=== PATIENT | male | born 1955 | race Caucasian/White ===

== ENCOUNTER 2017-04-17 16:59 | Emergency (ER) | payer OTHER ==
[2017-04-17 17:23] LABS: BASOPHIL# 0.1 X 10^3uL (0.0-0.1); EOSINOPHILS 3.1 % (0.0-6.0); EOSINOPHILS# 0.2 X 10^3uL (0.0-0.4); HEMATOCRIT 43.4 % (42.0-54.0); HEMOGLOBIN 14.5 g/dL (14.0-18.0); LYMPHOCYTES 21.3 % (20.0-40.0); LYMPHOCYTES# 1.6 X 10^3uL (0.8-3.8); MEAN CELL VOLUME 84.8 fL (80.0-100.0); MEAN CORPUS. HGB CONCENTRATION 33.3 g/dL (32.0-36.0); MEAN CORPUSCULAR HEMOGLOBIN 28.2 pg (29.0-35.0); MEAN PLATELET VOLUME 9.4 fL (7.4-10.4); MONOCYTES 7.8 % (2.0-10.0); MONOCYTES# 0.6 X 10^3uL (0.2-1.0); NEUTROPHILS 66.8 % (54.0-75.0); NEUTROPHILS# 5.2 X 10^3uL (2.6-6.7); PLATELET COUNT 308 X 10^3uL (130-440); RED BLOOD COUNT 5.12 X 10^6uL (4.20-6.10); RED CELL DISTRIBUTION WIDTH 12.9 % (11.5-14.5); WHITE BLOOD COUNT 7.7 X 10^3uL (3.9-10.7)
[2017-04-17 17:40] LABS: BLOOD UREA NITROGEN 27 mg/dL (9-20); CALCIUM 10.5 mg/dL (8.4-10.2); CHLORIDE 106 mmol/L (98-107); EST GLOMERULAR FILTRATION RATE > 60 mL/min; GLUCOSE 56 mg/dL (70-100); MAGNESIUM 2.2 mg/dL (1.6-2.3); POTASSIUM 3.9 mmol/L (3.5-5.1); SODIUM 143 mmol/L (137-145)
[2017-04-17 18:00] LABS: TROPONIN I < 0.012 ng/mL (0.00-0.034)
--- NOTE | 2017-04-17 19:02 | ER PHYSICIAN DOCUMENTATION ---
Physician Documentation [facility] Name:Richard Suarez Age:61 yrs Sex:Male :1955 Arrival Date:04/17/2017 Time:16:59 BedTrauma-C Private MD:Deloris Stroud ED, Tom Disposition: 04/17 18:20 Critical Care: not applicable. Chart complete. tl1 Disposition: 04/17/17 18:33 Discharged to Home/Self Care. Impression: Chest Pain, Palpitations. - Condition is Good. - Discharge Instructions: CHEST PAIN, Uncertain Cause, PALPITATIONS. - Prescriptions for Nitrostat 0.4 mg Sublingual Tablet, Sublingual - place 1 tablet by SUBLINGUAL route one time As needed - at the first sign of an attack; no more than 3 tablets are recommended within a 15 minute period.; 25 tablet. - Medical Reconciliation form form. - Follow up: Biju Jones MD; When: Tomorrow; Reason: Recheck today's complaints, for a STRESS echo. - Problem is new. - Symptoms have improved. HPI: 17:10 This 61 yrs old Male presents to ER via Private Vehicle with complaints of tl1 Breathing Difficulty, Dizziness. 17:10 The patient has shortness of breath with light activity. Onset: The symptom(s)/episode tl1 began/occurred suddenly, yesterday. Duration: The symptoms are intermittent, with episodes lasting 5 minute(s) at a time. The patient's shortness of breath is aggravated by light activity, is alleviated by rest. Associated signs and symptoms: Pertinent positives: chest pain, non-productive cough, diaphoresis, dizziness, Pertinent negatives: fever, hemoptysis, nausea, vomiting. Severity of symptoms: At their worst the symptoms were moderate in the emergency department the symptoms have resolved. The patient has experienced similar episodes in the past, a few times. He had some similar episodes about a year ago and was advised to get a stress test on return home to [place], but he was unable to get it done over the winter. He saw Dr Aguilar a few days ago and has an Echo scheduled for tomorrow. Today he went for a slow walk and had the onset of dizziness, diaphoresis, chest pressure, dyspnea and a decrease of his pulse ox into the 86% range and pulse in the 140 range. said it seemed He was convinced to come in by his , a nurse.. Historical: - Allergies: No known drug Allergies; - Home Meds: 1. Novolog 100 unit/mL subcutaneous soln 2. valsartan 320 mg oral tab 1 tab once daily 3. simvastatin 20 mg oral tab 1 tab once daily 4. amlodipine 5 mg oral tab 1 tab once daily 5. Glucagon Emergency 1 mg injection kit 6. aspirin 325 mg oral TbEC 1 tab once daily 7. Glucosamine Complex-MSM oral cap 8. Iron CR Oral 9. Flonase 50 mcg/actuation nasal spsn 2 sprays once daily for Allergic Rhinitis - PMHx: Diabetes - IDDM; diabetic retinopathy; Right shoulder surgery; KIDNEY STONES; Nocturnal Hypoxemia; Shortness of Breath; Hypoxia; Chronic Cough; Chronic Fatigue; BRONCHITIS; PNEUMONIA; Tachycardia; Hypertension; - PSHx: Rotator Cuff repair; Vitrectomy of Left eye; - Tetanus: < 10 years. - Ebola Screening: : Patient negative for fever greater than or equal to 101.5 degrees Fahrenheit, and additional compatible Ebola Virus Disease symptoms. Patient negative for fever greater than or equal to 101.5 degrees Fahrenheit, and additional compatible Ebola Virus Disease symptoms. Patient denies exposure to infectious person. Patient denies travel to an Ebola-affected area in the 21 days before illness onset. . - Immunization history: Pneumococcal vaccine status is unknown, Pneumococcal vaccine is up to date, Flu Vaccine < 1 year. - Social history: Smoking status: Patient states was never smoker of tobacco. ROS: 17:29 Cardiovascular: Positive for chest pain, palpitations, Negative for edema. tl1 17:29 Respiratory: Positive for cough, dyspnea on exertion, shortness of breath, Negative for orthopnea, sputum production, wheezing. 17:29 All other systems are negative. Exam: 17:29 Constitutional: This is a well developed, well nourished patient who is awake, alert, tl1 and in no acute distress. Head/Face: Normocephalic, atraumatic. 17:29 Neck: Trachea midline, no thyromegaly or masses palpated, and no cervical tl1 lymphadenopathy. Supple, full range of motion without nuchal rigidity, or vertebral point tenderness. No Meningismus. 17:29 Cardiovascular: Rate: normal, Rhythm: regular, Pulses: no pulse deficits are appreciated, Heart sounds: normal, Edema: is not appreciated, JVD: is not appreciated. 17:29 Respiratory: Respirations: normal, Breath sounds: are normal, no rales, rhonchi, no stridor, no wheezing. 17:29 Abdomen/GI: Palpation: abdomen is soft and non-tender. 17:29 Musculoskeletal/extremity: Exam is negative for acute changes. 17:29 Skin: Exam negative for acute changes. 17:29 Neuro: grossly normal. Vital Signs: 17:10 BP 127 / 77; Pulse 93; Resp 17; Temp 98.9(TE); Pulse Ox 92% on R/A; Weight 97.52 kg; rh Height 6 ft. 3 in. (190.50 cm); Pain 2/10; 17:37 BP 121 / 61; Pulse 84; Resp 15; Pulse Ox 91% on R/A; Pain 3/10; rh 18:00 BP 118 / 65 (auto/); lc 18:01 Pulse 85 MON; Resp 19; Pulse Ox 91% ; lc 18:45 Pain 0/10; lc 17:10 Body Mass Index 26.87 (97.52 kg, 190.50 cm) rh MDM: 17:22 Patient medically screened. tl1 17:31 Differential diagnosis: Anemia Anxiety Reaction CHF exacerbation, Myocardial Infarction tl1 pneumonia, pulmonary edema, Pulmonary Embolism Unstable Angina. Antibiotic administration: Not indicated. The patient's pulmonary embolism risk score was calculated as follows: No Risks (0 Pts). Data reviewed: vital signs, nurses notes, lab test result(s), cardiac enzymes, CBC, electrolytes, hepatic panel, urinalysis, EKG, and as a result, I will discharge patient. Data interpreted: recycling worker: Pulse oximetry:. Test interpretation: by ED physician or midlevel provider: plain radiologic studies, ECG. Counseling: I had a detailed discussion with the patient and/or guardian regarding: the historical points, exam findings, and any diagnostic results supporting the discharge/admit diagnosis, lab results, radiology results, the need for outpatient follow up, to return to the emergency department if symptoms worsen or persist or if there are any questions or concerns that arise at home. ECG:. 17:38 EKG attached cb 18:20 ED course: He was pain free throughout his ED stay with stable RA pulse ox's in the tl1 89-90% range. I told him that I think he is at moderate risk for an ACS. I think he is safe to go home overnight but I stressed the need for a stress test tomorrow,and I made every attempt ( the cardiology clinic was closed ) to change his echo tomorrow to a stress echo, prior to him flying back to [place] on .. 04/17 17:42 Order name: CBC AUTO DIF, MDIF/RMOR IF IND; Complete Time: 18:31 EDMS 04/17 17:53 Interpretation: Normal: WHITE BLOOD COUNT 7.7; HEMOGLOBIN 14.5; HEMATOCRIT 43.4; tl1 PLATELET COUNT 308. 04/17 18:01 Order name: BASIC METABOLIC PANEL; Complete Time: 18:31 EDMS 04/17 18:10 Interpretation: Normal: SODIUM 143; POTASSIUM 3.9; CHLORIDE 106; CARBON DIOXIDE 24; tl1 GLUCOSE 56; BLOOD UREA NITROGEN 27; CREATININE 1.2; CALCIUM 10.5. 04/17 18:01 Order name: MAGNESIUM; Complete Time: 18:31 EDMS 04/17 18:10 Interpretation: Normal: MAGNESIUM 2.2. tl1 04/17 18:01 Order name: TROPONIN I; Complete Time: 18:31 EDMS 04/17 18:10 Interpretation: Normal: TROPONIN I < 0.012. tl1 04/17 18:19 Order name: BNP,NT-PRO; Complete Time: 08:05 EDAZ 04/19 08:01 Interpretation: Normal: BNP,NT-PRO 60. tl1 04/18 07:09 Order name: CXR 2V [id number]; Complete Time: 08:05 EDAZ 04/17 17:09 Order name: 12-lead EKG; Complete Time: 17:09 04/17 17:09 Order name: Iv Saline Lock; Complete Time: 17: cb 04/17 17:09 Order name: Place Patient On Monitor; Complete Time: 17: cb 04/17 17:09 Order name: Pulse Ox Continuous; Complete Time: 17:09 cb EC:02 Rate is 86 beats/min. Rhythm is regular. QRS [place] is Normal. OR interval is normal at tl1 151 msec. QRS interval is normal at 99 msec. QT interval is normal at 431 msec. T waves are Normal. No ST changes noted. Clinical impression: Normal ECG. Interpreted by me. Reviewed by me. Dispensed Medications: No medications were administered Signatures: Li Reich, RN RN Rachel Braga RN RN Alla Garcia RN RN Mckinley Valadez MD MD [facility] Sushila Velazquez
--- NOTE | 2017-04-17 19:02 | ER NURSING DOCUMENTATION ---
Nurse's Notes [facility] Name:Richard Suarez Age:61 yrs Sex:Male :1955 Arrival Date:04/17/2017 Time:16:59 BedTrauma-C Private MD:Deloris Stroud Diagnosis:Chest Pain;Palpitations Presentation: 04/17 17:07 Acuity: ROGER 2 cb 17:08 Presenting complaint: Patient states: Pt has had ongoing cough, shortness of breath and rh some chest tightness. Pt yesterday was working around the house and had the chest tightness, diaphoresis and lightheadedness, same episode happened today. Pt is having a cardiac workup done tomorrow per dio. Transition of care: Home. 17:08 Method Of Arrival: Private Vehicle rh Triage Assessment: 17:09 General: Appears in no apparent distress, Behavior is cooperative. Pain: Denies pain. rh EENT: Oral mucosa is dry. Neuro: Level of Consciousness is awake, alert, obeys commands, Oriented to person, place, time, event. Cardiovascular: Capillary refill < 3 seconds Reports Diaphoresis shortness of breath Rhythm is sinus rhythm Chest pain quality is Tightness. Respiratory: Airway is patent Reports shortness of breath cough that is Onset: The symptoms/episode began/occurred gradually, the patient has mild shortness of breath. GI: Abdomen is non- distended Denies nausea. : No deficits noted. Derm: Skin is intact, is healthy with good turgor, Skin is pink, warm & dry. Musculoskeletal: Circulation, motion, and sensation intact Range of motion intact in all extremities. Historical: - Allergies: No known drug Allergies; - Home Meds: 1. Novolog 100 unit/mL subcutaneous soln 2. valsartan 320 mg oral tab 1 tab once daily 3. simvastatin 20 mg oral tab 1 tab once daily 4. amlodipine 5 mg oral tab 1 tab once daily 5. Glucagon Emergency 1 mg injection kit 6. aspirin 325 mg oral TbEC 1 tab once daily 7. Glucosamine Complex-MSM oral cap 8. Iron CR Oral 9. Flonase 50 mcg/actuation nasal spsn 2 sprays once daily for Allergic Rhinitis - PMHx: Diabetes - IDDM; diabetic retinopathy; Right shoulder surgery; KIDNEY STONES; Nocturnal Hypoxemia; Shortness of Breath; Hypoxia; Chronic Cough; Chronic Fatigue; BRONCHITIS; PNEUMONIA; Tachycardia; Hypertension; - PSHx: Rotator Cuff repair; Vitrectomy of Left eye; - Tetanus: < 10 years. - Ebola Screening: : Patient negative for fever greater than or equal to 101.5 degrees Fahrenheit, and additional compatible Ebola Virus Disease symptoms. Patient negative for fever greater than or equal to 101.5 degrees Fahrenheit, and additional compatible Ebola Virus Disease symptoms. Patient denies exposure to infectious person. Patient denies travel to an Ebola-affected area in the 21 days before illness onset. . - Immunization history: Pneumococcal vaccine status is unknown, Pneumococcal vaccine is up to date, Flu Vaccine < 1 year. - Social history: Smoking status: Patient states was never smoker of tobacco. Screenin:11 Infectious Disease Risk None. Abuse screen: Denies threats or abuse. Denies injuries rh from another. Nutritional screening: No deficits noted. Assessment: 17:11 See Triage Assessment done by same RN. 18:00 Respiratory: Respiratory effort is even, unlabored. lc 18:20 Reassessment: Patient states symptoms have improved. Patient appears in no apparent lc distress at this time. VSS, MONITOR IN NSR, NO C/O, AWAITING LABS. Vital Signs: 17:10 BP 127 / 77; Pulse 93; Resp 17; Temp 98.9(TE); Pulse Ox 92% on R/A; Weight 97.52 kg; rh Height 6 ft. 3 in. (190.50 cm); Pain 2/10; 17:37 BP 121 / 61; Pulse 84; Resp 15; Pulse Ox 91% on R/A; Pain 3/10; rh 18:00 BP 118 / 65 (auto/); lc 18:01 Pulse 85 MON; Resp 19; Pulse Ox 91% ; lc 18:45 Pain 0/10; lc 17:10 Body Mass Index 26.87 (97.52 kg, 190.50 cm) ED Course: 17:00 Patient arrived in ED. jl 17:00 Deloris Stroud MD is Private Physician. jl 17:00 nurse monitoring on. Pulse ox on. NIBP on. rh 17:02 Inserted peripheral IV: 20 gauge in right antecubital area and blood collected. 17:07 Triage completed. cb 17:08 Sushila Velazquez is Primary Nurse. rh 17:11 Notified ED Physician of patient's arrival and chief complaint. Dr. Sanchez notified. rh 17:11 Valuables Remains with patient Patient has correct armband on for positive rh identification. Placed in gown. Bed in low position. Call light in reach. Side rails up X 1. 17:22 Mckinley Sanchez MD is Attending Physician. tl1 17:38 EKG attached cb 18:31 Biju Jones MD is Referral Physician. tl1 Administered Medications: No medications were administered Outcome: 18:33 Discharge ordered by . tl1 18:45 Discharged to home ambulatory, with significant other. 18:45 Condition: stable 18:45 Discharge Assessment: Patient awake, alert and oriented x 3. No cognitive and/or functional deficits noted. Patient verbalized understanding of disposition instructions. 18:45 Discharge instructions given to patient, significant other, Instructed on discharge instructions, follow up and referral plans. medication usage, get stress echo tomorrow. forms faxed to cardiac clinic Demonstrated understanding of instructions, medications, Prescriptions given X 1. 19:01 Patient left the ED. 04/18 08:48 Discharge F/U Call: Spoke with: patient. Signatures: Li Reich, RN RN Rachel Braga RN RN lc Pavlish, Lena, MADDY CASTAÑEDA Mckinley Sanchez MD MD tl1 Sushila Velazquez Adan Avila
--- NOTE | 2017-04-17 20:05 | RADIOLOGY REPORT ---
Two views of the chest are compared with 10/02/2016. The heart, vessels and lungs are stable and unremarkable. IMPRESSION: Stable, unremarkable two views of the chest. MTDD
== END 2017-04-17 19:02 | disposition home or self-care (01) ==
LOC: ER 16:59
DX: R07.9 Chest pain, unspecified (principal); R00.2 Palpitations; R05 Cough; R06.00 Dyspnea, unspecified; R06.02 Shortness of breath; R61 Generalized hyperhidrosis; R42 Dizziness and giddiness; I10 Essential (primary) hypertension; E11.9 Type 2 diabetes mellitus without complications; Z79.82 Long term (current) use of aspirin; Z79.899 Other long term (current) drug therapy
CPT/HCPCS: 71020; 80048; 83735; 83880; 84484; 85025; 93005; 99284